=== PATIENT | female | born 2005 | race Hispanic/Latino ===

== ENCOUNTER 2024-10-08 18:24 | Emergency (ER) | payer OTHER, SELFPAY ==
[2024-10-08] MEDS ORDERED: Lidocaine/Transparent Dressing 1 EACH KIT ONE (18:52)
== END 2024-10-08 19:47 | disposition home or self-care (01) ==
LOC: NAV ERS 18:24
DX: T16.2XXA Foreign body in left ear, initial encounter (principal); Z55.6 Problems related to health literacy; W49.04XA Ring or other jewelry causing external constriction, initial encounter
CPT/HCPCS: 10120